=== PATIENT | female | born 2000 | race Caucasian/White ===

== ENCOUNTER 2020-10-21 15:42 | Emergency (ER) | payer OTHER ==
[~2020-10-21] VITALS: Ht 165.1 cm; Wt 92.1 kg
[2020-10-21] MEDS ORDERED: LIDOCAINE-MPF 1%, 5ML INFIL ONE (16:30)
[2020-10-21] MEDS ORDERED: LIDOCAINE-MPF 1%, 5ML ONE (16:39)
[2020-10-21 17:23] VITALS: BP 147/76
== END 2020-10-21 17:31 | disposition home or self-care (01) ==
LOC: ED 16:12
DX: L03.012 Cellulitis of left finger (principal)
CPT/HCPCS: 99283